=== PATIENT | female | born 1940 | race Caucasian/White ===

== ENCOUNTER 2024-06-04 12:03 | Emergency (ER) | payer MEDICARE, SELFPAY ==
--- NOTE | ~2024-06-04 | XR_ITS ---
XR hand LT min 3V 06/04/2024 12:34 Indication: Left hand pain Procedure: 3 views left hand Comparison: No prior studies for comparison. 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 No fracture or traumatic m alalignment. No significant soft tissue abnormality. No foreign bodies. Impression: 1: Moderate polyarticular osteoarthritis. Reviewed, dictated and finalized at location B. Impression: 1: Moderate polyarticular osteoarthritis.
--- NOTE | 2024-06-04 12:05 | ED.GENADULT ---
HPI - General Adult General Chief complaint: Extremity Injury, Upper Stated complaint: Left Hand Swollen Time Seen by Provider: 06/04/24 12:20 Source: patient, RN notes reviewed and old records reviewed Mode of arrival: ambulatory Limitations: no limitations History of Present Illness HPI narrative: 83 year old female with a history of dementia presents to the [facility] with concerns for dorsal left hand swelling. Tenderness over metacarpals 3 and 4. Hematoma noted. Patient states she is concerned that she had a spider bite Denies any trauma Patient states she woke up with the discomfort and swelling Related Data Home Medications Medication Instructions Recorded Confirmed brimonidine 0.2 % eye drops 1 drp EACH EYE DAILY 06/04/24 06/04/24 melatonin 5 mg tablet 5 mg PO HS 06/04/24 06/04/24 memantine 10 mg tablet 10 mg PO DAILY 06/04/24 06/04/24 metoprolol succinate 25 mg 25 mg PO DAILY 06/04/24 06/04/24 tablet,extended release 24 hr mirabegron 25 mg tablet,extended 25 mg PO DAILY 06/04/24 06/04/24 release 24 hr (Myrbetriq) multivitamin-iron sulfate 15 1 tablet PO DAILY 06/04/24 06/04/24 mg-folic acid 400 mcg tablet (Tab-A-Na Multivitamin w-iron) trazodone 50 mg tablet 50 mg PO HS 06/04/24 06/04/24 venlafaxine 75 mg capsule,extended 75 mg PO DAILY 06/04/24 06/04/24 release 24 hr Allergies Allergy/AdvReac Type Severity Reaction Status Date / Time codeine Allergy Rash Verified 06/04/24 12:07 MIDAZOLAM HCL Allergy Rash Uncoded 06/04/24 12:07 PCN Allergy Rash Uncoded 06/04/24 12:07 Review of Systems Review of Systems: All systems reviewed & are unremarkable except as noted in HPI and below Constitutional: Constitutional: Reports no additional constitutional complaints Eyes: Eyes: Reports no additional eye complaints ENT: Reports system reviewed and no additional complaints, except as documented Cardiovascular: Cardiovascular: Reports no additional cardiovascular complaints, Denies chest pain and Denies dyspnea Respiratory: Respiratory: Reports no additional respiratory complaints, Denies chest congestion, Denies cough and Denies dyspnea Gastrointestinal: Gastrointestinal: Reports no additional gastrointestinal complaints, Denies abdominal pain, Denies nausea and Denies vomiting Musculoskeletal: Musculoskeletal: Reports as per HPI Integumentary/Breasts: Skin/Breast: Reports system reviewed and no additional complaints, except as docu Neurologic: Reports system reviewed and no additional complaints, except as documented Psychiatric: Psychiatric: Reports no additional psychiatric complaints Allergic/Immunologic: Allergic/Immunologic: Reports no additional allergic/immunologic complaints PMFSH Social History Social History Smoking status: Never smoker Comments At the time of my signature, I reviewed and agree with the nursing past medical, surgical, social, and family history. There is no relevant family history pertinent to the patient complaint. Exam Const: General: cooperative, healthy appearing, comfortable, no acute distress, well developed, alert and well nourished Nutritional Appearance: well nourished Orientation/consciousness: patient oriented x3 Limitations: no limitations HENMT: Head: normal to inspection Ears: hearing grossly normal bilaterally and external ears normal Face/Nose/Sinus: Normal external nose present, Normal nares present, Normal nasal mucous membranes and turbinates present, normal facial exam and face symmetric Face and sinus: normal facial exam and face symmetric Eyes: General: appearance normal, both eyes and all related structures Alignment and Position: alignment normal Periorbital: periorbital findings normal Neck: Neck: normal visual inspection, full ROM, no lymphadenopathy and no meningeal signs Chest: Chest palpation & inspection: normal inspection of the chest Resp: Effort & Inspection: romero
[2024-06-04 12:20] VITALS: BP 138/100; PULSE 69; RESP 14; TEMP 37.2; O2SAT 100
== END 2024-06-04 12:50 | disposition home or self-care (01) ==
PROVIDERS: Emergency Provider Nurse Practitioner
DX: M15.9 Polyosteoarthritis, unspecified (principal); S60.222A Contusion of left hand, initial encounter; X58.XXXA Exposure to other specified factors, initial encounter; F03.90 Unspecified dementia, unspecified severity, without behavioral disturbance, psychotic disturbance, mood disturbance, and anxiety; E78.00 Pure hypercholesterolemia, unspecified; I10 Essential (primary) hypertension; N32.81 Overactive bladder; H40.9 Unspecified glaucoma; F41.9 Anxiety disorder, unspecified; F32.A Depression, unspecified
CPT/HCPCS: 73130; 99213; G0463